=== PATIENT | female | born 1960 | race Two or more races ===

== ENCOUNTER 2020-11-10 06:24 | Emergency (ER) | payer OTHER ==
[~2020-11-10] VITALS: Ht 154.9 cm; Wt 89.8 kg
[2020-11-10] MEDS ORDERED: traMADol HCL 50 MG TAB PO ONE (08:00)
[2020-11-10 10:17] VITALS: BP 129/67
== END 2020-11-10 10:25 | disposition home or self-care (01) ==
LOC: ER 06:24
DX: S93.402A Sprain of unspecified ligament of left ankle, initial encounter (principal); M71.22 Synovial cyst of popliteal space [Baker], left knee; M54.32 Sciatica, left side; I10 Essential (primary) hypertension; W18.00XA Striking against unspecified object with subsequent fall, initial encounter; Y93.89 Activity, other specified; Y92.89 Other specified places as the place of occurrence of the external cause; Y99.8 Other external cause status
CPT/HCPCS: 73562; 73610; 93971